=== PATIENT | male | born 1970 | race African-American/Black ===

== ENCOUNTER 2016-05-01 11:04 | Outpatient (CLI) | payer OTHER ==
[~2016-05-01 11:04] MED LIST: LISINOPRIL10 MG PO; METOPROLOL SUCC25 MG PO; NORCO1 TA1 PO; SPIRONOLACTONE25 MG PO
--- NOTE | 2016-05-05 09:39 | DIAGNOSTIC IMAGING REPORT ---
PROCEDURE: US BREAST ULTRASOUND - RIGHT INDICATION: Status post right breast surgery. Recurrent palpable area and tenderness. TECHNIQUE: High resolution galan scale and color Doppler sonographic images of the right breast. COMPARISON: Comparison is made to right breast ultrasound 11/20/2015. FINDINGS: There is a persistent or recurrent 2.2 x 0.5 cm ovoid hypoechoic area in the retroareolar region of the right breast (previously 2.9 x 0.5 cm). IMPRESSION: 1. There is a persistent or recurrent 2.2 x 0.5 cm ovoid hypoechoic nodule in the retroareolar right breast. In view of the patient's history of right breast tenderness, this may represent asymmetric gynecomastia (atypical nodular appearance). Recurrent benign tumor (e.g., lipoma, schwannoma, neurofibroma, fibroadenoma) might also be considered. A malignant neoplastic process is considered unlikely. 2. Clinical followup is suggested. In addition, follow-up right breast ultrasound in 3-months is recommended to confirm stability. 3. Findings discussed with the patient and called to Dr. Mcclure. RESULT CODE: 3- Probably benign findings - initial short-interval follow-up suggested. A. A negative report should not delay biopsy if a dominant or clinically suspicious mass is present. 10-15% of cancers are not identified by x-ray. B. A negative report may reinforce clinical impression. C. Adenosis and dense breasts may obscure an underlying neoplasm. D. False positive reports average 6-10%. E.. A yearly screening mammogram is recommended. A reminder letter will be scheduled.
== END 2016-05-01 23:00 ==
LOC: US SRH 11:04
DX: N63 Unspecified lump in breast (principal); R92.8 Other abnormal and inconclusive findings on diagnostic imaging of breast